=== PATIENT | female | born 1990 | race Caucasian/White ===

== ENCOUNTER 2022-05-19 07:18 | Emergency (ER) | payer OTHER ==
[~2022-05-19] VITALS: Ht 172.7 cm; Wt 145.1 kg
[2022-05-19 07:23] VITALS: BP 137/88
--- NOTE | 2022-05-19 07:33 | NUR ---
AMBULATED TO BED 2
--- NOTE | 2022-05-19 07:36 | NUR ---
ASSUMED CARE OF PATIENT.
--- NOTE | 2022-05-19 07:37 | NUR ---
DR. ERAZO AT PT BEDSIDE FOR FURTHER EVALUATION.
[2022-05-19] MEDS ORDERED: KETOROLAC 60 MG/2 ML VIAL IM ONE (07:40)
--- NOTE | 2022-05-19 07:40 | NUR ---
31 Y/O FEMALE C/O DRY NON-PRODUCTIVE COUGH, SORE THROAT X 1DAY. PT BLOOD SUGAR IN TRIAGE 166 AT THIS TIME. LAST SEIZURE IN SEPTEMBER 2001. NOTED REDNESS TO THROAT. DENIES FEVER/CHILLS. DENIES N/V/D. PMH: DM, EPILEPSY NKA
[2022-05-19] MEDS ORDERED: IBUP-2213 PO ×2 (07:44→08:35)
[2022-05-19] MEDS ORDERED: PRED20TA5 PO ×2 (07:44→08:35)
[2022-05-19 08:01] VITALS: BP 146/99
--- NOTE | 2022-05-19 08:01 | NUR ---
Patient discharged with v/s stable. Written and verbal after care instructions given FOR SORETHROAT and explained. Patient alert, oriented and verbalized understanding of instructions. Ambulatory with steady gait. All questions addressed prior to discharge. ID band removed. Patient advised to follow up with PMD. Rx of IBUPROFEN AND PREDNISONE given. Patient educated on indication of medication including possible reaction and side effects. Opportunity to ask questions provided and answered.
== END 2022-05-19 08:01 | disposition home or self-care (01) ==
LOC: MED 07:18
DX: J02.9 Acute pharyngitis, unspecified (principal); R07.0 Pain in throat; E11.9 Type 2 diabetes mellitus without complications
CPT/HCPCS: 96372; 99283; J1885